=== PATIENT | female | born 1985 | race Caucasian/White ===

== ENCOUNTER 2016-08-06 17:34 | Outpatient (CLI) | payer OTHER ==
[2016-08-06] MEDS ORDERED: IOPAMIDOL-300 100 ML VIAL IVP ONE (19:55)
[2016-08-06] MEDS ORDERED: IOPAMIDOL-300 50 ML VIAL PO ONE (19:55)
== END 2016-08-06 17:35 | disposition home or self-care (01) ==
DX: R10.31 Right lower quadrant pain (principal)
CPT/HCPCS: 74177; Q9967

== ENCOUNTER 2017-09-01 08:00 | Outpatient (CLI) | payer OTHER | END 2017-09-01 08:01 | disposition home or self-care (01) | LOC: LAB.R 08:00 | PROVIDERS: ATTEND Family Medicine | DX: R10.11 Right upper quadrant pain (principal) | CPT/HCPCS: 87086 ==

== ENCOUNTER 2017-09-15 08:00 | Outpatient (CLI) | payer OTHER ==
[2017-09-15 12:56] LABS: H. PYLORIS ANTIGEN STL NEGATIVE (Negative)
== END 2017-09-15 08:01 | disposition home or self-care (01) ==
LOC: LAB.WCP 08:00
PROVIDERS: ATTEND Family Medicine
DX: K21.9 Gastro-esophageal reflux disease without esophagitis (principal)
CPT/HCPCS: 87338

== ENCOUNTER 2017-09-22 11:49 | Emergency (ER) | payer OTHER ==
--- NOTE | 2017-09-22 14:08 | ED Physician Documentation ---
PD HPI CHEST PAIN - Stated complaint Stated Complaint: HEADACHE, L ARM PX - Chief complaint Chief Complaint: Cardiac - History obtained from History obtained from: Patient - History of Present Illness Timing - onset: How many days ago (few) Timing - onset during: Light activity (she has had headache for several days, and then feeling some chest discomfort at times, blurred vision. Left arm pain, tingling at times. She has also had some feeling of vertigo. Not all symptoms at the same time.) Timing - duration: Days Timing - details: Gradual onset, Still present, Waxing and waning Quality: Aching Radiation: Left upper extremity Improved by: Nothing Worsened by: No: Exertion, Inspiration Associated symptoms: Feeling faint / dizzy. No: Shortness of air, Nausea, Vomiting, General Weakness, Palpitations Similar symptoms before: Has not had sx before Recently seen: Not recently seen Review of Systems Constitutional: reports: Fatigue. denies: Fever, Chills, Myalgias Eyes: reports: Decreased vision. denies: Photophobia Nose: denies: Rhinorrhea / runny nose, Congestion Throat: denies: Sore throat Cardiac: reports: Chest pain / pressure. denies: Palpitations, Pedal edema, Calf pain Respiratory: denies: Dyspnea, Cough GI: reports: Nausea. denies: Abdominal Pain, Vomiting Neurologic: reports: Numbness (left arm), Headache. denies: Altered mental status, Head injury PD PAST MEDICAL HISTORY - Past Medical History Cardiovascular: None Respiratory: None Neuro: None Endocrine/Autoimmune: None - Past Surgical History Past Surgical History: Yes General: Cholecystectomy - Present Medications Home Medications: Ambulatory Orders Medication Instructions Recorded Confirmed Omeprazole [PriLOSEC] 20 mg PO DAILY 12/20/13 12/04/14 Norelgestromin/Ethin.estradiol 1 tab PO DAILY 01/04/14 12/04/14 [Ortho Evra Patch] Ibuprofen [Motrin] 400 mg PO Q6H PRN #30 tablet 12/04/14 Ondansetron Odt [Zofran] 4 mg TL Q6H PRN #10 tablet 12/04/14 Dexamethasone [Decadron] 4 mg PO DAILY #5 tablet 09/22/17 HYDROcod/ACETAM 5/325 [Drew 5/325] 1 tab PO Q6H PRN #15 tablet 09/22/17 Ondansetron Odt [Zofran] 4 mg TL Q6H PRN #15 tablet 09/22/17 - Allergies Allergies/Adverse Reactions: Allergies Allergy/AdvReac Type Severity Reaction Status Date / Time prednisone Allergy Rash Verified 01/04/14 10:33 - Social History Does the pt smoke?: No Smoking Status: Never smoker Does the pt drink ETOH?: Yes Does the pt have substance abuse?: No - Family History Family history: denies: Venous thromboembolism, Cerebral aneurysm - Immunizations Immunizations are current?: Yes Immunizations: TDAP >10years/unknown - POLST Patient has POLST: No PD ED PE NORMAL - Vitals Vital signs reviewed: Yes - General General: Alert and oriented X 3, No acute distress, Well developed/nourished - HEENT HEENT: PERRL, EOMI, Ears normal, Moist mucous membranes, Pharynx benign - Neck Neck: Supple, no meningeal sign, No adenopathy - Cardiac Cardiac: RRR, No murmur - Respiratory Respiratory: Clear bilaterally - Abdomen Abdomen: Soft, Non tender - Derm Derm: Normal color, Warm and dry - Extremities Extremities: No deformity, No tenderness to palpate - Neuro Neuro: Alert and oriented X 3, 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 No: ST elevation c/w ischemia, ST depression - Labs Labs: Laboratory Tests 09/22/17 09/22/17 09/22/17 14:44 14:44 14:44 WBC 4.9 RBC 4.42 Hgb 13.9 Hct 40.5 MCV 91.6 MCH 31.5 H MCHC 34.4 RDW 12.6 Plt Count 288 MPV 8.6 Neut # 3.2 Lymph # 1.2 L [place] # 0.3 Eos # 0.1 Baso # 0.1 Absolute Nucleated RBC 0.00 Nucleated RBC % 0.0 ESR 4 Sodium 137 Potassium 3.7 Chloride 101 Carbon Dioxide 25 Anion Gap 11.0 BUN 10 Creatinine 0.7 Estimated GFR (MDRD) 96 Glucose 97 Calcium 9.1 Total Bilirubin 0.6 AST 26 ALT 34 Alkaline Phosphatase 46 Total Protein 7.8 Albumin 4.5 Globulin 3.3 Albumin/Globulin Ratio 1.4 Lipase 12 L - Rads (name of study) brain MRI Radiology: Prelim report reviewed (normal) PD MEDICAL DECISION MAKING - ED course Complexity details: considered differential (varied symptoms with headache, left arm pain, some blurred vision. Consider functional headache such as migraine, but also need to eval for tumors, bleeding, MS, among other problems. MRI obtained and was normal. ), d/w patient Departure - Departure Disposition: 01 Home, Self Care Clinical Impression: Headache Qualifiers: Headache type: unspecified Headache chronicity pattern: acute headache Intractability: not intractable Qualified Code(s): R51 - Headache Arm pain Qualifiers: Laterality: left Qualified Code(s): M79.602 - Pain in left arm Condition: Stable Record reviewed to determine appropriate education?: Yes Instructions: ED Cephalgia Unspecified, ED Headache Migraine Follow-Up: Daniella Miramontes MD [Primary Care Provider] - Prescriptions: Dexamethasone [Decadron] 4 mg PO DAILY #5 tablet HYDROcod/ACETAM 5/325 [Drew 5/325] 1 tab PO Q6H PRN #15 tablet PRN Reason: Pain Ondansetron Odt [Zofran] 4 mg TL Q6H PRN #15 tablet PRN Reason: Nausea / Vomiting Comments: Drink lots of fluids. Your blood tests and MRI are normal here. Presume this puts the headache into a functional or vascular category such as migraine. Use the Decadron daily for several more days until fully better. Tylenol or ibuprofen if needed for headache initially add hydrocodone if needed for worse pain. Ondansetron if needed for nausea. Using this in conjunction with the hydrocodone can be useful. Follow-up with your primary care in the next week or so, call for an appointment. Discharge Date/Time: 09/22/17 17:29
[2017-09-22] MEDS ORDERED: ACETAMINOPHEN 325 MG TABLET PO STA (14:29)
[2017-09-22] MEDS ORDERED: IBUPROFEN 600 MG TABLET PO STA (14:29)
[2017-09-22 14:56] LABS: BASOPHILS # (AUTO) 0.1 10^3/uL (0.0-0.1); BASOPHILS % (AUTO) 1.3 %; EOSINOPHILS # (AUTO) 0.1 10^3/uL (0.0-0.7); EOSINOPHILS % (AUTO) 1.7 %; HGB - HEMOGLOBIN 13.9 g/dL (12.0-16.0); LYMPHOCYTES # (AUTO) 1.2 10^3/uL (1.5-3.5); LYMPHOCYTES % (AUTO) 25.6 %; MEAN CORPUSCULAR HEMOGLOBIN 31.5 pg (27.0-31.0); MEAN CORPUSCULAR HGB CONC 34.4 g/dL (32.0-36.0); MEAN CORPUSCULAR VOLUME 91.6 fL (81.0-99.0); MEAN PLATELET VOLUME 8.6 fL (7.9-10.8); MONOCYTES # (AUTO) 0.3 10^3/uL (0.0-1.0); MONOCYTES % (AUTO) 6.7 %; NEUTROPHILS # (AUTO) 3.2 10^3/uL (1.5-6.6); NEUTROPHILS % (AUTO) 64.7 %; PLT - PLATELET COUNT 288 10^3/uL (130-450); RED BLOOD COUNT 4.42 10^6/uL (4.20-5.40); RED CELL DISTRIBUTION WIDTH 12.6 % (12.0-15.0); WHITE BLOOD COUNT 4.9 x10^3/uL (4.8-10.8)
[2017-09-22 15:03] LABS: ALBUMIN 4.5 g/dL (3.2-5.5); ALBUMIN/GLOBULIN RATIO 1.4 (1.0-2.2); BILIRUBIN,TOTAL 0.6 mg/dL (0.2-1.0); CALCIUM 9.1 mg/dL (8.5-10.3); CREATININE 0.7 mg/dL (0.4-1.0); TOTAL PROTEIN 7.8 g/dL (6.7-8.2)
--- NOTE | 2017-09-22 16:45 | MRI Report ---
EXAM: MRI BRAIN WITHOUT CONTRAST EXAM DATE: 09/22/2017 04:15 PM. CLINICAL HISTORY: 32-year-old with headache, left arm weakness, and visual disturbance. Evaluate for intracranial pathology. COMPARISON: None. TECHNIQUE: Multiplanar, multisequence T1-weighted and fluid-sensitive MR sequences of the brain were performed. Sequences optimized for routine evaluation. Other: None. IV Contrast: None. FINDINGS: Brain Volume: Normal for age. Parenchyma/Dura: No mass, acute infarct or hemorrhage. No white matter lesions identified. Ventricles/Cisterns: No hydrocephalus. No abnormal extra-axial fluid collection or hemorrhage. Orbits: Symmetric and unremarkable. Sella [place]: The pituitary gland, cavernous sinuses, suprasellar cistern and optic chiasm are unrem arkable. IAC: Symmetric and unremarkable. Vasculature: Normal signal flow void is seen in the major arterial structures at the skull base. Sinuses: No acute appearing sinus disease. Bones: No focal pathologic appearing marrow signal changes. Other: None. IMPRESSION: 1. No acute infarct, intracranial hemorrhage, mass, hydrocephalus, or midline shift. 2. No white matter lesion seen. [facility] Referring Provider Line: [phone] SITE ID: [id number]
[2017-09-22 17:01] VITALS: BP 137/99
[2017-09-22] MEDS ORDERED: DEXAMETHASONE 10 MG/ML VIAL PO STA (17:04)
[2017-09-22] MEDS ORDERED: CHERRY SYRUP 10 ML UDC PO ONE (17:23)
== END 2017-09-22 17:29 | disposition home or self-care (01) ==
LOC: ED 11:49
DX: R51 Headache (principal); M79.602 Pain in left arm; R00.0 Tachycardia, unspecified
CPT/HCPCS: 36415; 70551; 80053; 83690; 85025; 85651; 93005; 99283; 99284; A9270

== ENCOUNTER 2020-04-30 10:17 | Emergency (ER) | payer MEDICAID, OTHER ==
[2020-04-30 10:53] LABS: BASOPHILS # (AUTO) 0.1 10^3/uL (0.0-0.1); BASOPHILS % (AUTO) 0.5 %; EOSINOPHILS # (AUTO) 0.1 10^3/uL (0.0-0.7); EOSINOPHILS % (AUTO) 1.4 %; HGB - HEMOGLOBIN 13.8 g/dL (12.0-16.0); LYMPHOCYTES # (AUTO) 0.8 10^3/uL (1.5-3.5); LYMPHOCYTES % (AUTO) 7.6 %; MEAN CORPUSCULAR HEMOGLOBIN 33.5 pg (27.0-31.0); MEAN CORPUSCULAR HGB CONC 33.6 g/dL (32.0-36.0); MEAN CORPUSCULAR VOLUME 99.8 fL (81.0-99.0); MEAN PLATELET VOLUME 9.8 fL (7.9-10.8); MONOCYTES % (AUTO) 9.3 %; NEUTROPHILS # (AUTO) 8.4 10^3/uL (1.5-6.6); NEUTROPHILS % (AUTO) 80.7 %; PLT - PLATELET COUNT 245 10^3/uL (130-450); RED BLOOD COUNT 4.12 10^6/uL (4.20-5.40); RED CELL DISTRIBUTION WIDTH 12.3 % (12.0-15.0); WHITE BLOOD COUNT 10.3 x10^3/uL (4.8-10.8)
[2020-04-30] MEDS ORDERED: ACETAMINOPHEN 325 MG TABLET PO STA (10:56)
[2020-04-30 10:57] LABS: BILIRUBIN,URINE NEGATIVE (NEGATIVE); GLUCOSE, URINE (UA) NEGATIVE (NEGATIVE); KETONES,URINE (UA) NEGATIVE (NEGATIVE); LEUKOCYTE ESTERASE, URINE TRACE (NEGATIVE); NITRITE,URINE NEGATIVE (NEGATIVE); OCCULT BLOOD,URINE MODERATE (NEGATIVE); PROTEIN,URINE TRACE mg/dL (NEGATIVE); UROBILINOGEN,URINE 0.2 (NORMAL) E.U./dL (NORMAL)
[2020-04-30 10:59] LABS: CLARITY,URINE HAZY (CLEAR)
[2020-04-30 11:04] LABS: BACTERIA,URINE Few /HPF (None Seen); SQUAMOUS EPITHELIAL CELL,UR MOD Squamous (<= Few)
[2020-04-30 11:05] LABS: ALBUMIN/GLOBULIN RATIO 1.1 (1.0-2.2); BILIRUBIN,TOTAL 0.9 mg/dL (0.2-1.0); CALCIUM 8.9 mg/dL (8.5-10.3); CREATININE 0.9 mg/dL (0.4-1.0); TOTAL PROTEIN 7.7 g/dL (6.7-8.2)
[2020-04-30 11:05] LABS: HCG UR QUAL NEGATIVE
[2020-04-30] MEDS ORDERED: KETOROLAC 30 MG/ML VIAL IVP STA (11:08)
[2020-04-30] MEDS ORDERED: cefTRIAXone 1 GM in SODIUM CHLORIDE 0.9% MINIBAG 100 ML IV STA (11:08)
[2020-04-30] MEDS ORDERED: SODIUM CHLORIDE 0.9% 1,000 ML IV STA (11:08)
--- NOTE | 2020-04-30 11:12 | ED Physician Documentation ---
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 This morning on awakening she has fever worse back pain and chills. She denies any upper respiratory symptoms, loss of taste or myalgias. Review of Systems Constitutional: reports: Fever, Chills, Sweats Eyes: denies: Photophobia Ears: denies: Ear pain Nose: denies: Rhinorrhea / runny nose, Congestion Throat: denies: Sore throat Cardiac: denies: Chest pain / pressure, Palpitations Respiratory: denies: Dyspnea, Cough GI: reports: Abdominal Pain, Nausea, Vomiting : reports: Dysuria, Frequency Skin: denies: Rash Musculoskeletal: reports: Back pain. denies: Neck pain, Extremity pain Neurologic: denies: Generalized weakness, Focal weakness, Numbness PD PAST MEDICAL HISTORY - Past Medical History Cardiovascular: None Respiratory: None Endocrine/Autoimmune: None - Past Surgical History Past Surgical History: Yes General: Cholecystectomy - Present Medications Home Medications: Ambulatory Orders Medication Instructions Recorded Confirmed Omeprazole [PriLOSEC] 20 mg PO DAILY 12/20/13 12/04/14 Norelgestromin/Ethin.estradiol 1 tab PO DAILY 01/04/14 12/04/14 [Ortho Evra Patch] Ibuprofen [Motrin] 400 mg PO Q6H PRN #30 tablet 12/04/14 Ondansetron Odt [Zofran] 4 mg TL Q6H PRN #10 tablet 12/04/14 HYDROcod/ACETAM 5/325 [[place] 5/325] 1 tab PO Q6H PRN #15 tablet 09/22/17 Ondansetron Odt [Zofran] 4 mg TL Q6H PRN #15 tablet 09/22/17 dexAMETHasone [Decadron] 4 mg PO DAILY #5 tablet 09/22/17 Amox/Clav 875/125 [Augmentin] 1 each PO Q12H #14 tablet 04/30/20 Ondansetron Odt [Zofran] 4 mg TL Q6H PRN #10 tablet 04/30/20 Oxycodone HCl/Acetaminophen 1 - 2 each PO Q6H PRN #14 tablet 04/30/20 [Percocet 5-325 mg Tablet] - Allergies Allergies/Adverse Reactions: Allergies Allergy/AdvReac Type Severity Reaction Status Date / Time prednisone Allergy Rash Verified 04/30/20 10:27 - Social History Does the pt smoke?: No Smoking Status: Never smoker Does the pt drink ETOH?: Yes Does the pt have substance abuse?: No - Immunizations Immunizations are current?: Yes Immunizations: TDAP >10years/unknown - POLST Patient has POLST: No PD ED PE NORMAL - Vitals Vital signs reviewed: Yes (tachy and hypertensive febrile ) - General General: Alert and oriented X 3, No acute distress, Well developed/nourished - HEENT HEENT: Atraumatic, PERRL, EOMI - Neck Neck: Supple, no meningeal sign, No bony TTP - Cardiac Cardiac: RRR, No murmur - Respiratory Respiratory: No respiratory distress, Clear bilaterally - Abdomen Abdomen: Normal bowel sounds, Soft, Non distended, No organomegaly, Other (mild RUQ tenderness to bimanual palpation of the right kidney ) - Back Back: No spinal TTP, Other (right CVA tenderness without left CVA tenderness) - Derm Derm: Normal color, Warm and dry, No rash - Extremities Extremities: No deformity, No edema - Neuro Neuro: Alert and oriented X 3, 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, No motor deficit, No sensory deficit, Normal speech Eye Opening: Spontaneous Motor: Obeys Commands Verbal: Oriented GCS Score: 15 - Psych Psych: Normal mood, Normal affect Results - Vitals Vitals: Vital Signs - 24 hr 04/30/20 04/30/20 04/30/20 10:20 10:35 11:30 Temperature 37.9 C H 39.6 C H Heart Rate 123 H 110 H 109 H Respiratory 20 30 H 30 H Rate Blood Pressure 159/88 H 136/93 H 138/94 H O2 Saturation 99 99 98 04/30/20 12:22 Temperature 37.3 C Heart Rate 110 H Respiratory 24 Rate Blood Pressure 138/95 H O2 Saturation 98 Oxygen O2 Source Room air - Labs Labs: Laboratory Tests 04/30/20 04/30/20 04/30/20 10:35 10:35 10:40 WBC 10.3 RBC 4.12 L Hgb 13.8 Hct 41.1 MCV 99.8 H MCH 33.5 H MCHC 33.6 RDW 12.3 Plt Count 245 MPV 9.8 Neut # (Auto) 8.4 H Lymph # (Auto) 0.8 L [place] # (Auto) 1.0 Eos # (Auto) 0.1 Baso # (Auto) 0.1 Absolute Nucleated RBC 0.00 Nucleated RBC % 0.0 Sodium Potassium Chloride Carbon Dioxide Anion Gap BUN Creatinine Estimated GFR (MDRD) Glucose Lactic Acid Calcium Total Bilirubin AST ALT Alkaline Phosphatase Total Protein Albumin Globulin Albumin/Globulin Ratio Lipase Urine Color YELLOW Urine Clarity HAZY Urine pH 6.0 Ur Specific [place] 1.015 1.015 Urine Protein TRACE Urine Glucose (UA) NEGATIVE Urine Ketones NEGATIVE Urine Occult Blood MODERATE H Urine Nitrite NEGATIVE Urine Bilirubin NEGATIVE Urine Urobilinogen 0.2 (NORMAL) Ur Leukocyte Esterase TRACE H Urine RBC 11-25 H Urine WBC 6-10 H Ur Squamous Epith Cells MOD Squamous H Urine Bacteria Few Ur Microscopic Review INDICATED Urine Culture Comments NOT INDICATED Urine HCG, Qual NEGATIVE 04/30/20 04/30/20 04/30/20 10:40 11:10 11:25 WBC RBC Hgb Hct MCV MCH MCHC RDW Plt Count MPV Neut # (Auto) Lymph # (Auto) [place] # (Auto) Eos # (Auto) Baso # (Auto) Absolute Nucleated RBC Nucleated RBC % Sodium 136 Potassium 3.1 L Chloride 101 Carbon Dioxide 25 Anion Gap 10.0 BUN 5 L Creatinine 0.9 Estimated GFR (MDRD) 71 L Glucose 114 H Lactic Acid 1.0 Calcium 8.9 Total Bilirubin 0.9 AST 17 ALT 21 Alkaline Phosphatase 36 L Total Protein 7.7 Albumin 4.0 Globulin 3.7 Albumin/Globulin Ratio 1.1 Lipase 18 L Urine Color YELLOW Urine Clarity HAZY Urine pH 6.0 Ur Specific [place] 1.015 Urine Protein TRACE Urine Glucose (UA) NEGATIVE Urine Ketones NEGATIVE Urine Occult Blood MODERATE H Urine Nitrite NEGATIVE Urine Bilirubin NEGATIVE Urine Urobilinogen 0.2 (NORMAL) Ur Leukocyte Esterase SMALL H Urine RBC 11-25 H Urine WBC 11-25 H Ur Squamous Epith Cells MANY Squamous H Urine Bacteria Moderate H Ur Microscopic Review INDICATED Urine Culture Comments NOT INDICATED Urine HCG, Qual NEGATIVE PD MEDICAL DECISION MAKING - ED course Complexity details: reviewed results, re-evaluated patient, considered ollie thomas, d/w patient ED course: 35 y/o female with fever and flank pain has leukocytes and bacteria in the urine sample and she is febrile and tachycardic. She is given IV saline, rocephin, toradal and eventually she is given IV dilaudid. She responds to treatment and is discharged with a diagnosis of pyelonephritis. The patient does have a normal white blood cell count and a normal lactate and she is responded to treatment and she is not diagnosed with sepsis. Departure - Departure Disposition: 01 Home, Self Care Clinical Impression: Pyelonephritis Condition: Stable Instructions: ED Kidney Infec Female Follow-Up: [facility] [Provider Group] Prescriptions: Amox/Clav 875/125 [Augmentin] 1 each PO Q12H #14 tablet Oxycodone HCl/Acetaminophen [Percocet 5-325 mg Tablet] 1 - 2 each PO Q6H PRN #14 tablet PRN Reason: pain Ondansetron Odt [Zofran] 4 mg TL Q6H PRN #10 tablet PRN Reason: Nausea / Vomiting
[2020-04-30 11:36] LABS: BILIRUBIN,URINE NEGATIVE (NEGATIVE); CLARITY,URINE HAZY (CLEAR); GLUCOSE, URINE (UA) NEGATIVE (NEGATIVE); KETONES,URINE (UA) NEGATIVE (NEGATIVE); LEUKOCYTE ESTERASE, URINE SMALL (NEGATIVE); NITRITE,URINE NEGATIVE (NEGATIVE); OCCULT BLOOD,URINE MODERATE (NEGATIVE); PROTEIN,URINE TRACE mg/dL (NEGATIVE); UROBILINOGEN,URINE 0.2 (NORMAL) E.U./dL (NORMAL)
[2020-04-30 11:37] LABS: HCG UR QUAL NEGATIVE
[2020-04-30 11:45] LABS: BACTERIA,URINE Moderate /HPF (None Seen); SQUAMOUS EPITHELIAL CELL,UR MANY Squamous (<= Few)
[2020-04-30] MEDS ORDERED: HYDROmorphone 1 MG/ML CARPUJECT IVP STA (12:53)
[2020-04-30] MEDS ORDERED: POTASSIUM CHLORIDE 20 MEQ TABLET PO STA (12:54)
[2020-04-30 13:24] VITALS: BP 122/81
== END 2020-04-30 13:28 | disposition home or self-care (01) ==
LOC: ED 10:17
DX: N12 Tubulo-interstitial nephritis, not specified as acute or chronic (principal)
CPT/HCPCS: 36415; 80053; 81001; 81025; 83605; 83690; 85025; 87040; 87077; 87086; 87181; 96361; 96365; 96375; 99284; A9270; J1170; 81003